=== PATIENT | male | born 1960 | race Caucasian/White ===

== ENCOUNTER 2017-07-20 21:46 | Inpatient (IN) | payer OTHER ==
[~2017-07-20] VITALS: Ht 180.3 cm; Wt 96.1 kg
[~2017-07-20 21:46] MED LIST: ASPIRIN81 M2 PO; HUMALOG MI100 UNIT/5 SC; LIPITOR40 MG PO; NEURONTIN600 MG PO; OXYCODONE HCL10 MG PO; ULTRAM50 MG PO
[2017-07-21 12:41] VITALS: BP 138/92
[2017-07-21 18:53] LABS: HEMATOCRIT 45.1 % (38.0-50.0); HEMOGLOBIN 15.2 G/DL (12.5-16.6); MCH 30.3 PG (29.0-34.0); MCHC 33.7 G/DL (30.0-36.0); MCV 89.8 FL (86-99); PLATELET COUNT 219 K/uL (156-360); RBC DIS.WIDTH-CV 11.9 % (11.8-14.6); RED BLOOD COUNT 5.02 M/uL (4.00-5.50); WHITE BLOOD COUNT 8.6 K/uL (4.1-10.2)
[2017-07-21 19:13] LABS: CHLORIDE 105 MEQ/L (99-109); CREATINE KINASE 37 IU/L (1-294); CREATININE 0.8 MG/DL (0.6-1.3); GFR ESTIMATE (CALCULATED) > 59 mL/min/ (58.99-99999); GLUCOSE 118 mg/dL (70-99); POTASSIUM 4.3 MEQ/L (3.7-5.4); SODIUM 136 MEQ/L (136-147); TOTAL CK 37 IU/L (1-294); UREA NITROGEN (BUN) 9 mg/dL (9-23)
[2017-07-21 19:34] LABS: CK-MB 0.4 ng/mL (0.0-4.9); CKMB RELATIVE INDEX 1.1 (0.0-3.9)
[2017-07-21 21:07] VITALS: BP 142/82
[2017-07-21 23:16] VITALS: BP 139/78
[2017-07-22 05:24] LABS: HEMATOCRIT 42.3 % (38.0-50.0); MCHC 33.1 G/DL (30.0-36.0); MCV 90.6 FL (86-99); PLATELET COUNT 209 K/uL (156-360); RBC DIS.WIDTH-SD 39.6 % (39-53); RED BLOOD COUNT 4.67 M/uL (4.00-5.50); WHITE BLOOD COUNT 11.5 K/uL (4.1-10.2)
[2017-07-22 05:55] LABS: CHLORIDE 103 MEQ/L (99-109); CREATINE KINASE 137 IU/L (1-294); CREATININE 0.9 MG/DL (0.6-1.3); GFR ESTIMATE (CALCULATED) > 59 mL/min/ (58.99-99999); GLUCOSE 137 mg/dL (70-99); SODIUM 137 MEQ/L (136-147); TOTAL CK 137 IU/L (1-294); UREA NITROGEN (BUN) 11 mg/dL (9-23)
[2017-07-22 07:01] LABS: CK-MB 0.5 ng/mL (0.0-4.9); CKMB RELATIVE INDEX 0.4 (0.0-3.9)
[2017-07-22 07:43] VITALS: BP 152/94
== END 2017-07-22 12:54 | disposition home or self-care (01) | DRG 269 ==
LOC: 2SOUTH → ENRESERV 21:46 → 2SOUTH 07-21 08:40 → ENRESERV 07-21 19:34 → 4EAST 07-21 20:45
PROVIDERS: Surgery
PROC: 04VD3DZ Restriction of Left Common Iliac Artery with Intraluminal Device, Percutaneous Approach (ICD-10-PCS; principal; 2017-07-21)
PROC: 04VC3DZ Restriction of Right Common Iliac Artery with Intraluminal Device, Percutaneous Approach (ICD-10-PCS; principal; 2017-07-21)
PROC: 04V03D6 (ICD-10-PCS; principal; 2017-07-21)
DX: I71.4 Abdominal aortic aneurysm, without rupture (principal); I72.3 Aneurysm of iliac artery; J44.9 Chronic obstructive pulmonary disease, unspecified; F17.210 Nicotine dependence, cigarettes, uncomplicated; M19.90 Unspecified osteoarthritis, unspecified site; K21.9 Gastro-esophageal reflux disease without esophagitis; E11.9 Type 2 diabetes mellitus without complications; I83.899 Varicose veins of unspecified lower extremity with other complications; Z79.84 Long term (current) use of oral hypoglycemic drugs; Z82.49 Family history of ischemic heart disease and other diseases of the circulatory system; Z83.3 Family history of diabetes mellitus
CPT/HCPCS: 36415; 80048; 82550; 82553; 82948; 85025; 85027; 86850; 86900; 86901; 93005; C1725; C1769; C1884; C1887; C1894; J0330; J0690; J1170; J1644; J1650; J1815; J2250; J2405; J2550; J2710; J2720; J2765; J3010; J7120